=== PATIENT | male | born 1995 | race Caucasian/White ===

== ENCOUNTER 2016-10-20 09:25 | Outpatient (CLI) | payer BC ==
--- NOTE | 2016-10-20 10:36 | DIAGNOSTIC IMAGING REPORT ---
PROCEDURE: XR CHEST 2 VIEW INDICATION: Shortness of breath TECHNIQUE: PA and lateral views. COMPARISON: Chest 04/19/2016 FINDINGS: Lungs are clear. Heart and mediastinum are normal. Thorax is normal. IMPRESSION: 1. Negative chest.
== END 2016-10-20 23:00 ==
LOC: XR SRH 09:25
DX: R53.83 Other fatigue (principal); R03.0 Elevated blood-pressure reading, without diagnosis of hypertension